=== PATIENT | female | born 1995 | race Caucasian/White ===

== ENCOUNTER 2017-02-07 01:41 | Inpatient (IN) | payer OTHER ==
[2017-02-07] MEDS ORDERED: ceFAZolin 2 GM PREMIX(*) 0 GM/0 ML BAG IVPB ONE (06:39)
[2017-02-07] MEDS ORDERED: Sodium Citrate/Citric Acid* 15 ML UDC ONE (07:04)
[2017-02-07] MEDS ORDERED: ceFOXitin 2 GM IVPREMIX* 2 GM/50 ML BAG ONE (07:09)
[2017-02-07] MEDS ORDERED: Morphine PF AMP (0.5MG/ML)* 5 MG/10 ML AMP ONE (07:42)
[2017-02-07] MEDS ORDERED: OXYTOCIN* 10 UNITS/ML 1 ML VIAL ONE (08:33)
[2017-02-07] MEDS ORDERED: Ondansetron INJ* 2 MG/ML VIAL IV PRN (08:44)
[2017-02-07] MEDS ORDERED: Naloxone* 0.4 MG/ML 1 ML VIAL IV PRN (08:44)
[2017-02-07] MEDS ORDERED: Nalbuphine* 20 MG/ML 1 ML VIAL IV PRN (08:44)
[2017-02-07] MEDS ORDERED: Zolpidem TAB* 5 MG PO PRN (09:03)
[2017-02-07] MEDS ORDERED: Witch Hazel PAD* JAR TOPICAL PRN (09:03)
[2017-02-07] MEDS ORDERED: Dibucaine 1% 28.35 GM TUBE PR PRN (09:03)
[2017-02-07] MEDS ORDERED: oxyCODONE/Acetamin 5/325 MG* TAB PO PRN (09:03)
[2017-02-07] MEDS ORDERED: Acetaminophen TAB* 325 MG PO PRN (09:03)
[2017-02-07] MEDS ORDERED: Glycerin ADULT SUPP PR PRN (09:03)
--- NOTE | 2017-02-07 09:55 | OP ---
DATE OF OPERATION: 02/07/17 - ROOM #[id number] DATE OF : [birth year] SURGEON: Dr. Coronel TRACK SURFACING MACHINE OPERATOR: Laura Judd CM PRE-OP DIAGNOSIS: Previous section. POST-OP DIAGNOSIS: Previous section. OPERATIVE PROCEDURE: Low transverse section. ESTIMATED BLOOD LOSS: 800 cc. COMPLICATIONS: None. FINDINGS: This is a 21-year-old 2, para 1, with a previous section who desired an elective repeat. At the time of , she had a viable male. Apgars were 9 and 9, weight was 9 pounds 6 ounces. Normal- appearing uterus, fallopian tubes, and ovaries. DESCRIPTION OF PROCEDURE: The patient identified and procedure identified as a low transverse section. The patient was taken to the operating room and prepped and draped in the usual fashion in the left lateral recumbent position under spinal anesthesia. A Pfannenstiel incision was made through the old incision and carried down through fat, fascia, and peritoneum. An Baljinder retractor was placed. A transverse incision was made in the lower uterine segment and extended laterally using blunt dissection. The was delivered through the incision with ease. The cord was doubly clamped and cut, and the was handed to the awaiting senior quality manager. Cord blood was obtained. Placenta was delivered spontaneously. The uterus was wiped out with a wet lap sponge. The uterine incision was then closed using 0 Polysorb in running fashion. A second layer was used to imbricate the first layer. Good hemostasis was achieved with 3-0 Polysorb [id number] sutures. Hemostasis was verified. The gutters were wiped out with a wet lap sponge. The Baljinder retractor was removed. The peritoneum was closed using 3-0 Polysorb in a running fashion. Good hemostasis achieved in the subrectus layers. The fascia was closed using 0 Polysorb in a running fashion. The subcuticular tissue space was reapproximated using 3-0 Polysorb, and the skin was closed with 4-0 Monocryl in a subcuticular fashion. All sponge and instrument counts were correct. The patient returned to the recovery room in a stable condition. [id number]/[facility] #: [id number] [facility]ENT[facility]ishi
[2017-02-07] MEDS: oxyCODONE/Acetamin 5/325 MG* TAB PO PRN ×3 (10:00→23:50)
[2017-02-07] MEDS ORDERED: Scopolamine 1.5 mg* PATCH ONE (10:54)
[2017-02-07] MEDS ORDERED: Scopolamine 1.5 mg* PATCH TRANSDERM SCH (11:00)
[2017-02-07] MEDS: Simethicone CHEW TAB* 80 MG PO SCH ×3 (11:46→21:25)
[2017-02-07] MEDS ORDERED: Morphine INJ* 2 MG/ML 1 ML SYRINGE ONE (12:24)
[2017-02-07] MEDS ORDERED: DiMENhydriNATE IV* 50 MG/ML VIAL ONE (12:24)
[2017-02-07] MEDS ORDERED: Morphine INJ* 2 MG/ML 1 ML SYRINGE IV ONE (12:25)
[2017-02-07] MEDS ORDERED: DiMENhydriNATE IV* 50 MG/ML VIAL IV PUSH ONE (12:25)
[2017-02-07] MEDS: Docusate CAP* 100 MG PO SCH ×2 (12:43→21:25)
[2017-02-07] MEDS: Ibuprofen TAB* 600 MG PO PRN ×2 (16:46→23:50)
[2017-02-08] MEDS: oxyCODONE/Acetamin 5/325 MG* TAB PO PRN ×4 (05:59→23:47)
[2017-02-08] MEDS: Ibuprofen TAB* 600 MG PO PRN ×4 (05:59→23:47)
[2017-02-08 06:49] LABS: Add Diff/Slide Review? Slide Review Added; Comments Flag Yes; Hematocrit 25 % (35-47); Mean Corpuscular HGB Conc 32 g/dl (31-36); Mean Corpuscular Hemoglobin 24 pg (27-31); Mean Corpuscular Volume 74 fL (80-97); Mean Platelet Volume 10 um3 (7.4-10.4); Red Blood Count 3.37 10^6/ul (4.0-5.4); Red Cell Distribution Width 18 % (10.5-15); White Blood Count 13.7 10^3/ul (3.5-10.8)
[2017-02-08] MEDS: Docusate CAP* 100 MG PO SCH ×3 (07:46→19:15)
[2017-02-08] MEDS: Simethicone CHEW TAB* 80 MG PO SCH ×4 (07:46→23:48)
[2017-02-08] MEDS: Ferrous Gluconate TAB* 324 MG TAB PO SCH ×2 (19:15)
[2017-02-09] MEDS: Ibuprofen TAB* 600 MG PO PRN ×2 (05:29→12:06)
[2017-02-09] MEDS: oxyCODONE/Acetamin 5/325 MG* TAB PO PRN ×2 (05:29→12:06)
[2017-02-09 08:14] VITALS: BP 105/44
[2017-02-09] MEDS: Docusate CAP* 100 MG PO SCH (08:25)
[2017-02-09] MEDS: Simethicone CHEW TAB* 80 MG PO SCH ×2 (08:25→12:06)
[2017-02-09] MEDS: Ferrous Gluconate TAB* 324 MG TAB PO SCH (08:25)
[2017-02-11] MEDS ORDERED: Scopolomine PATCH Remove* 1 NOTE MISC PATCH OFF SCH (11:00)
== END 2017-02-09 12:38 | disposition home or self-care (01) | DRG 540 ==
LOC: UNDOADMIN 01:41 → MCHOB 01:41
PROVIDERS: ADMIT Obstetrics & Gynecology; ATTEND Obstetrics & Gynecology
PROC: 10D00Z1 Extraction of Products of Conception, Low, Open Approach (ICD-10-PCS; principal; 2017-02-07 07:45)
DX: O34.211 Maternal care for low transverse scar from previous cesarean delivery (principal); D64.9 Anemia, unspecified; O90.81 Anemia of the puerperium; Z37.0 Single live birth; Z3A.39 39 weeks gestation of pregnancy
CPT/HCPCS: 36415; 85025; A9270-GY; J0690; J0694; J1240; J2270; J2405; J2590

== ENCOUNTER 2017-08-08 10:51 | Emergency (ER) | payer OTHER ==
--- NOTE | 2017-08-08 10:58 | UC ---
Knee Pain HPI - HPI Summary HPI Summary: Twisted right knee 2 weeks ago. Has continued pain with ambulation---unable to fully extended---Gets a clicking, catching, pain - History of Current Complaint Chief Complaint: UCLowerExtremity Stated Complaint: KNEE INJURY Time Seen by Provider: 08/08/17 11:05 Hx Obtained From: Patient Hx Last Menstrual Period: currently ?: No Onset/Duration: Sudden Onset, Lasting Weeks - 2 Severity Initially: Moderate Severity Currently: Moderate Location Of Injury: knee (r) lateral distal Pain Intensity: 6 Pain Scale Used: 0-10 Numeric Character: Aching, Throbbing, Stiffness Associated Signs And Symptoms: Positive: Negative Able to Bear Weight: Yes - with pain - Allergies/Home Medications Allergies/Adverse Reactions: Allergies Allergy/AdvReac Type Severity Reaction Status Date / Time No Known Allergies Allergy Verified 08/08/17 11:00 Home Medications: Home Medications Amitriptyline TAB* [Elavil TAB*] 10 mg PO BEDTIME 08/08/17 [History Confirmed ] PMH/Surg Hx/FS Hx/Imm Hx Previously Healthy: Yes Neurological History: Migraine - Surgical History Surgical History: Yes Surgery Procedure, Year, and Place: T & A age 8. . D & E - Family History Known Family History: Positive: None - Social History Occupation: Employed Full-time Lives: With Family Alcohol Use: None Substance Use Type: None Smoking Status (MU): Never Smoked Tobacco Have You Smoked in the Last Year: No - Immunization History Most Recent Influenza Vaccination: few years Most Recent Tetanus Shot: "in school" Most Recent Pneumonia Vaccination: never Review of Systems Constitutional: Negative Skin: Negative Eyes: Negative ENT: Negative Respiratory: Negative Cardiovascular: Negative Gastrointestinal: Negative Genitourinary: Negative Motor: Decreased ROM - unable to fully extend Neurovascular: Negative Musculoskeletal: Negative, Arthralgia - right knee Neurological: Negative Psychological: Negative Is Patient Immunocompromised?: No All Other Systems Reviewed And Are Negative: Yes Physical Exam Triage Information Reviewed: Yes Appearance: Well-Appearing, No Pain Distress, Well-Nourished Vital Signs Reviewed: Yes Eye Exam: Normal Eyes: Positive: Conjunctiva Clear ENT Exam: Normal ENT: Positive: Normal ENT inspection, Hearing grossly normal. Negative: Nasal congestion, Nasal drainage, Trismus, Muffled/hoarse voice Dental Exam: Normal Neck exam: Normal Neck: Positive: Supple, Nontender Respiratory Exam: Normal Respiratory: Positive: Chest non-tender, No respiratory distress, No accessory muscle use Cardiovascular Exam: Normal Cardiovascular: Positive: RRR, Pulses Normal, Brisk Capillary Refill Musculoskeletal Exam: Other Musculoskeletal: Positive: No Edema, Strength Limited @, ROM Limited @ - extension right knee Neurological Exam: Normal Neurological: Positive: Alert, Muscle Tone Normal Psychological Exam: Normal Psychological: Positive: Normal Response To Family Skin Exam: Normal Diagnostics - Radiology No standard instances Xray Interpretation: No Acute Changes Radiology Interpretation Completed By: ED Physician Re-Evaluation - Re-Evaluation First Eval Change: Improved - improved comfort n/m/c intact Knee Pain Course/Dx - Course Course Of Treatment: rice, immoblizer, crutches, follow with orthopedic - Differential Dx/Diagnosis Differential Diagnosis/HQI/PQRI: Contusion, Fracture (Closed), Internal Derangement Of Knee, Sprain, Strain Provider Diagnoses: Right knee injury Discharge - Discharge Plan Condition: Stable Disposition: HOME Patient Education Materials: Swollen Knee Joint (ED), RICE Therapy (ED), Knee Immobilizer (ED) Forms: *Work Release Referrals: Alonzo Roldan MD [Medical Doctor] - 4 Days
[2017-08-08 11:08] VITALS: BP 113/70
--- NOTE | 2017-08-08 11:58 | RAD ---
INDICATION: 3 weeks of left COMPARISON: None TECHNIQUE: 4 view radiograph of the right knee. FINDINGS: The visualized bones are well-corticated and properly aligned. The joint spaces are properly maintained. There is no radiographic evidence of joint effusion. There is no acute fracture, dislocation or other focal bony abnormality. IMPRESSION: Normal knee radiograph as described above. If the patient's symptoms persist, follow-up imaging is recommended.
== END 2017-08-08 12:10 | disposition home or self-care (01) ==
LOC: UCEAST 10:51
DX: S89.81XA Other specified injuries of right lower leg, initial encounter (principal); X50.1XXA Overexertion from prolonged static or awkward postures, initial encounter; Y92.9 Unspecified place or not applicable
CPT/HCPCS: 99213; G0463

== ENCOUNTER 2018-03-09 03:15 | Emergency (ER) | payer OTHER ==
[2018-03-09 03:19] VITALS: BP 118/70
[2018-03-09] MEDS ORDERED: Proparacaine 0.5% OPHTH.SOL* 15 ML BTL RIGHT EYE ONE (03:41)
[2018-03-09] MEDS ORDERED: Fluorescein Sodium TOPICAL* 1 MG TEST OPHTHALMIC ONE (03:41)
[2018-03-09] MEDS ORDERED: Tetracaine 0.5% OPTH.SOL 15ML* BTL ONE (03:42)
[2018-03-09] MEDS ORDERED: Fluorescein Sod TOPICAL 0.6* 0.6 MG TEST OPHTHALMIC ONE (03:43)
[2018-03-09] MEDS ORDERED: Tetracaine 0.5% OPTH.SOL 4 ML* 1 DROP BTL ONE ×2 (03:44→03:51)
[2018-03-09] MEDS ORDERED: Cyclopentolate 1% OPTH.SOL* 2 ML BTL LEFT EYE ONE (03:49)
--- NOTE | 2018-03-09 04:55 | ED ---
Minoo Armas Emily, scribed for Tramaine Arango MD on 03/09/18 at 0350 . 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 The patient rates the pain 7/10 in severity. Symptoms aggravated by nothing. Symptoms alleviated by nothing. Pt reports inability to open R eyelid. Pt denies L eye pain. Pt denies any contact or glasses use. - History of Current Complaint Chief Complaint: EDEyeProblem Time Seen by Provider: 03/09/18 03:27 Hx Obtained From: Patient Onset/Duration: Sudden Onset, Lasting Hours, Still Present - Allergies/Home Medications Allergies/Adverse Reactions: Allergies Allergy/AdvReac Type Severity Reaction Status Date / Time No Known Allergies Allergy Verified 03/09/18 03:19 PMH/Surg Hx/FS Hx/Imm Hx Previously Healthy: No Endocrine/Hematology History: Denies: Hx Diabetes Cardiovascular History: Denies: Hx Hypertension, Hx Pacemaker/ICD History: Reports: Other Problems/Disorders - D & E Denies: Hx Renal Disease Sensory History: Denies: Hx Hearing Aid Psychiatric History: Denies: Hx Panic Disorder - Surgical History Surgery Procedure, Year, and Place: T & A age 8. X2. D & E Infectious Disease History: No Infectious Disease History: Denies: Hx Clostridium Difficile, Hx Hepatitis, Hx Human Immunodeficiency Virus (HIV), Hx Shingles, Hx Tuberculosis, Hx Known/Suspected VRE, Hx Known/ Suspected VRSA, History Other Infectious Disease, Traveled Outside the [place] in Last 30 Days - Family History Known Family History: Positive: Cardiac Disease Negative: Diabetes - Social History Occupation: Unemployed Lives: Alone Alcohol Use: None Hx Substance Use: No Substance Use Type: Reports: None Hx Tobacco Use: No Smoking Status (MU): Never Smoked Tobacco Have You Smoked in the Last Year: No Review of Systems Negative: Fever Positive: Other - Positive R eye pain and inability to open eyelid. Negative L eye pain All Other Systems Reviewed And Are Negative: Yes Physical Exam - Summary Physical Exam Summary: Appearance: Well appearing, no pain distress Skin: warm, dry, reflects adequate perfusion Head/face: normal Eyes: EOMI, ALISIA, difficulty opening the affected right eye. No pain with consensual light reflex in the R eye. No opacity to the cornea. Minimal pain relief with topical anesthetic. No fluorescence uptake. Eye is held open and has grossly normal vision. Dilated with Cyclogyl which relieved her symptoms significantly. ENT: normal Neck: supple, non-tender Respiratory: CTA, breath sounds present Cardiovascular: RRR, pulses symmetrical Abdomen: non-tender, soft Bowel Sounds: present Musculoskeletal: normal, strength/ROM intact Neuro: normal, sensory motor intact, A&Ox3 Triage Information Reviewed: Yes Vital Signs On Initial Exam: Initial Vitals Temp Pulse Resp BP Pulse Ox 98.1 F 92 16 118/70 99 03/09/18 03:17 03/09/18 03:17 03/09/18 03:17 03/09/18 03:17 03/09/18 03:17 Vital Signs Reviewed: Yes Diagnostics - Vital Signs Vital Signs Temp Pulse Resp BP Pulse Ox 03/09/18 03:17 98.1 F 92 16 118/70 99 - Laboratory Lab Statement: Any lab studies that have been ordered have been reviewed, and results considered in the medical decision making process. Re-Evaluation - Re-Evaluation First Eval Change: Improved - Significant improvement with Cyclogyl EENT Course/Dx - Course Course Of Treatment: Patient with atraumatic eye pain, globes are soft. Vision is grossly normal. No corneal fluorescein uptake. No injection of the conjunctiva. Pain is significantly improved with Cyclogyl. Pupil is midrange and reactive prior to dilation. Discussed with compressor house operator will evaluate the office. There is no history of rheumatologic or autoimmune conditions or family history thereof. - Differential Diagnoses Differential Diagnoses: Cluster Headache, Contusion, Foreign Body, Glaucoma, Keratitis, Uveitis - Diagnoses Provider Diagnoses: Iritis - Provider Notifications Discussed Care Of Patient With: Baldomero Kim Time Discussed With Above Provider: 04:40 Instructed by Provider To: Other - Consult with Dr. Kim (hr internship) at 0440. He agrees to see pt at 5pm at his office. Discharge - Sign-Out/Discharge Documenting (check all that apply): Discharge/Admit/Transfer - Discharge - Discharge Plan Condition: Improved Disposition: HOME Patient Education Materials: Iritis (ED) Referrals: Baldomero Kim MD [Medical Doctor] - Additional Instructions: Go at 5 PM today to be seen by the compressor house operator. Do not drive. Dark glasses can be worn. Ice to the eyes as needed. Ibuprofen as needed. Return if worse, visual changes, new symptoms or other concerns. - Billing Disposition and Condition Condition: IMPROVED Disposition: HOME The documentation as recorded by the Minoo fall Emily accurately reflects the service I personally performed and the decisions made by me, Tramaine Arango MD.
== END 2018-03-09 05:02 | disposition home or self-care (01) ==
LOC: ED 03:15
DX: H20.9 Unspecified iridocyclitis (principal)
CPT/HCPCS: 99281; A9270-GY

== ENCOUNTER 2019-08-31 06:03 | Inpatient (IN) | payer OTHER ==
[~2019-08-31 06:03] MED LIST: Buffered Lidocaine 1% SYRIN* 1 ML/SYRINGE INTRADERM ONE; Sodium Citrate/Citric Acid* 15 ML UDC PO ONE
--- OUTSIDE RECORDS SUMMARY | 2019-08-31 06:09 | XMS REPORT | Continuity of Care Document ---
:1995 External Reference #:[id number] Author Name Saumya Shannon MD Address [address] [place] [address] Problems Description No Active Problems Social History Type Date Description Comments Sex Unknown Tobacco Use Start: Unknown Never Smoked Cigarettes ETOH Use Denies alcohol use Recreational Drug Use Does Not Use Drugs Tobacco Use Start: Unknown Patient has never smoked Smoking Status Reviewed: 08/25/19 Patient has never smoked Exercise Type/Frequency Does not exercise Seat Belt/Car Seat Always uses seat belt Allergies, Adverse Reactions, Alerts Active Allergies Reaction Severity Comments Date NKDA 02/22/2014 Seasonal Allergies 07/19/2016 Medications Active Medications SIG Qnty Indications Ordering Date Provider Butalbital/Acetami 1-2 tablets every 4 30tabs Binta Hart 08/12/2019 nophen/Caffeine hours; do not excess Kel, CNM 6 tablets daily 50-325-40mg Tablets Insulin Syringe Use as directed with 100units Xavier Mcdermott, 07/27/2019 insulin; ok to CNM 31G X /16" 1 ML substitute gauge and Misc needles size covered by insurance. Humulin N 4 units 10ml Vicky 07/17/2019 subcutaneously in at [facility] CamiloM 100Unit/ML night Suspension Dha 1 by mouth every day, Unknown ok to use 200-400mg 200mg Capsules dha History Medications Fioricet 1-2 capsules 14caps Binta Hart 08/09/2019 - 50-300-40mg every 4 hours as SERJIO Begum 08/12/2019 Capsules needed. max 6 capsules per day. Insulin use as directed 100units Carleen Rodriguez, 07/17/2019 - Syringe/0.3ML/30G X 07/27/2019 516" 30G X 03/26" 0.3 ML Misc Immunizations Description No Information Available Vital Signs Date Vital Result Comment 08/25/2019 10:21am BP Systolic 120 mmHg BP Diastolic 64 mmHg Height 62.25 inches 5'2.25" Weight 211.00 lb BMI (Body Mass Index) 38.3 kg/m2 Last Menstrual Period [id number] 4 Parity 2 07/17/2019 10:02am BP Systolic 120 mmHg BP Diastolic 74 mmHg Height 62.25 inches 5'2.25" Weight 205.00 lb BMI (Body Mass Index) 37.2 kg/m2 4 Parity 2 Results Test Date Facility Test Result H/L Range Note Laboratory test [facility] Rupture of Negative 1 [address] [place] [address] Membranes [phone] Urine Drug SCR [facility] Urine None Detected None ED & Pain [address] [place] [address] Amphetamine Detect Clinic [phone] Screen Urine Barbiturates Screen None Detected None Detect Urine Benzodiazepine Screen None Detected None Detect Urine Cannabinoids Screen None Detected None Detect Urine Cocaine Screen None Detected None Detect Urine Opiates Screen None Detected None Detect Urine Phencyclidine Screen None Detected None Detect 2 Laboratory test 08/14/2019 [facility] Group B SEE RESULT 3 , [address] [place] [address] Strep BELOW [phone] Culture Screen CBC Auto Diff 08/09/2019 [facility] White Blood 12.8 High 3.5- [address] [place] [address] Count 10^3/uL 0.8 [phone] Red Blood Count 4.49 10^6/uL Normal 3.70-4.87 Hemoglobin 11.0 g/dL Low 12.0-16.0 Hematocrit 34 % Low 35-47 Mean Corpuscular Volume 75 fL Low 80-97 Mean Corpuscular Hemoglobin 25 pg Low 27-31 Mean Corpuscular HGB Conc 33 g/dL Normal 31-36 Red Cell Distribution Width 15 % Normal 10-15 Platelet Count 204 10^3/uL Normal 150-450 Mean Platelet Volume 8.3 fL Normal 7.4-10.4 Abs Neutrophils 10.2 10^3/uL High 1.5-7.7 Abs Lymphocytes 1.5 10^3/uL Normal 1.0-4.8 Abs Monocytes 1.1 10^3/uL High 0-0.8 Abs Eosinophils 0.0 10^3/uL Normal 0-0.6 Abs Basophils 0.0 10^3/uL Normal 0-0.2 Abs Nucleated RBC 0.0 10^3/uL Granulocyte % 79.5 % Lymphocyte % 11.6 % Monocyte % 8.5 % Eosinophil % 0.1 % Basophil % 0.3 % Nucleated Red Blood Cells % 0.0 Comp Metabolic 08/09/2019 [facility] Sodium 135 mmol/L Normal 135-145 [place] [address] [phone] Potassium 4.0 mmol/L Normal 3.5-5.0 Chloride 103 mmol/L Normal 101-111 Co2 Carbon Dioxide 26 mmol/L Normal 22-32 Anion Gap 6 mmol/L Normal 2-11 Glucose 150 mg/dL High 70-100 Blood Urea Nitrogen 11 mg/dL Normal 6-24 Creatinine 0.61 mg/dL Normal 0.51-0.95 BUN/Creatinine Ratio 18.0 Normal 8-20 Calcium 8.6 mg/dL Normal 8.6-10.3 Total Protein 6.1 g/dL Low 6.4-8.9 Albumin 3.2 g/dL Normal 3.2-5.2 Globulin 2.9 g/dL Normal 2-4 Albumin/Globulin Ratio 1.1 Normal 1-3 Total Bilirubin 0.30 mg/dL Normal 0.2-1.0 Alkaline Phosphatase 93 U/L Normal 34-104 Alt 7 U/L Normal 7-52 Ast 12 U/L Low 13-39 Egfr Non- 121.5 >60 Egfr 147.1 >60 5 Laboratory test 08/09/2019 [facility] Point of Care 87 mg/dL Normal 70-100 [address] [place] [address] Glucose [phone] Laboratory test 08/09/2019 [facility] Point of Care 63 mg/dL Low 70-100 [address] [place] [address] Glucose [phone] Urinalysis 08/09/2019 [facility] Urine Color Straw [address] [place] [address] [phone] Urine Appearance Cloudy Urine Specific [place] 1.003 Low 1.010-1.030 Urine pH 7.0 Normal 5-9 Urine Urobilinogen Negative Negative Urine Ketones Negative Negative Urine Protein Negative Negative Urine Leukocytes Negative Negative Urine Blood Negative Negative Urine Nitrite Negative Negative Urine Bilirubin Negative Negative Urine Glucose Negative Negative Urine Drug 08/09/2019 [facility] Urine None Detected None Detect [place] [address] [place] [address] Amphetamine Pain Clinic [phone] Screen Urine Barbiturates Screen None Detected None Detect Urine Benzodiazepine Screen None Detected None Detect Urine Cannabinoids Screen None Detected None Detect Urine Cocaine Screen None Detected None Detect Urine Opiates Screen None Detected None Detect Urine Phencyclidine Screen None Detected None Detect 9 GC/Chlamydia Dna 08/04/2019 [facility] Chlamydia [place] [address] trachomatis Pam [phone] Neisseria gonorrhoeae (GC) Pam Negative Negative 1 A NEGATIVE results indicates there is no evidence of membrane rupture. 2 The urine specimen was tested at the listed cutoffs: Drug class test level (ng/mL) Amphetamines 500 Barbiturates 200 Benzodiazepine metabolites 200 Cocaine metabolites 150 Cannabinoids 50 Opiates 300 Pcp 25 Specimen was received without chain of custody. Results should be used for medical purposes only. 3 [id number] 4 SEE RESULT BELOW Name: MEDARDO BROWNLEE : [address]: Segundo Dorsey DO Acct: [id number] Unit: [id number] AGE: 24 Location: [facility] Re08/14/19 SEX: F Status: REG REF SPEC: [id number] ANEESH: 08/14/19-1508 [facility] DR: Segundo Dorsey DO REQ: [id number] RECD: 08/17/19 STATUS: COMP _ SOURCE: CER/VAG/RE SPDESC: ORDERED: Grp B Strp Scrn COMMENTS: [id number] QUERIES: Is patient penicillin allergic and/or sensitivities needed? N Provider Requisition # [id number] Procedure Result Reported Site Group B Strep Culture Screen Final 08/19/19- 1140 ML Group B Strep Screen Negative * ML - Main Lab . END OF REPORT DEPARTMENT OF PATHOLOGY, [address] [place] [address] Lucian Bullock M.D. Director [facility] # [id number] 5 Because ethnic data is not always readily available, this report includes an eGFR for both -Americans and non- Americans. The National Kidney Disease Education Program (NKDEP) does not endorse the use of the MDRD equation for patients that are not between the ages of 18 and 70, are , have extremes of body size, muscle mass, or nutritional status, or are non- or non-. According to the National Kidney Foundation, irrespective of diagnosis, the stage of the disease is based on the level of kidney function: Stage Description GFR(mL/min/1.73 m(2)) 1 Kidney damage with normal or decreased GFR 90 2 Kidney damage with mild decrease in GFR 60-89 3 Moderate decrease in GFR 30-59 4 Severe decrease in GFR 15-29 5 Kidney failure <15 (or dialysis) 6 Sales Product Manager: [id number] Sales Product Manager: [id number] Urine Source: Clean Catch 9 The urine specimen was tested at the listed cutoffs: Drug class test level (ng/mL) Amphetamines 500 Barbiturates 200 Benzodiazepine metabolites 200 Cocaine metabolites 150 Cannabinoids 50 Opiates 300 Pcp 25 Specimen was received without chain of custody. Results should be used for medical purposes only. Procedures Date Code Description Status 08/25/2019 45388 Echography Uterus Limited Completed 08/18/2019 57220 Echography Uterus Limited Completed 08/14/2019 05030 Biophysical Profile Without Non Stress Test Completed 08/14/2019 01538 Echography Uterus Follow-Up Or Repeat Completed 08/14/2019 33790 Non-Stress Test Completed 08/09/2019 75086 Non-Stress Test Completed Medical Devices Description No Information Available Encounters Type Date Location Provider Dx Diagnosis Office Visit 08/09/2019 10:22a Delivery Binta Hart Kel, Z37.0 Single live CNM R51 Headache Assessments Date Code Description Provider 08/25/2019 O24.414 Gestational diabetes mellitus in Ultrasounds , insulin controlled 08/18/2019 O99.810 Abnormal glucose complicating Segundo Dorsey JR, DO 08/18/2019 O24.414 Gestational diabetes mellitus in Segundo Dorsey JR DO , insulin controlled 08/18/2019 O99.810 Abnormal glucose complicating Ultrasounds 08/14/2019 O99.810 Abnormal glucose complicating Segundo Dorsey JR, DO 08/14/2019 O34.211 Maternal care for low transverse scar Segundo Willian JR, DO from previous delivery 08/14/2019 O99.810 Abnormal glucose complicating Ultrasounds 08/09/2019 Z37.0 Single live Binta Begum, SERJIO 08/09/2019 R51 Headache Binta Begum, SERJIO 08/04/2019 O24.414 Gestational diabetes mellitus in Vicky Camilo CNM , insulin controlled 07/27/2019 O24.414 Gestational diabetes mellitus in Carleen Rodriguez MD , insulin controlled 07/17/2019 Z36.9 Encounter for screening, Xavier Mcdermott CNM unspecified Plan of Treatment Future Appointment(s):10/12/2019 10:00 am - Saumya Shannon MD at [facility] 1:15 pm - Ashley Awan CNM at [facility]08/31/2019 7:45 am - Saumya Shannon MD at [facility] R Functional Status Description No Information Available Mental Status Description No Information Available Referrals Description No Information Available
--- OUTSIDE RECORDS SUMMARY | 2019-08-31 06:09 | XMS REPORT | Continuity of Care Document ---
:1995 External Reference #:[id number] Author Name Segundo Willian JR, DO Address [address] [place] [address], [place] [address] Problems Description No Active Problems Social History Type Date Description Comments Sex Unknown Tobacco Use Start: Unknown Never Smoked Cigarettes ETOH Use Denies alcohol use Recreational Drug Use Does Not Use Drugs Tobacco Use Start: Unknown Patient has never smoked Exercise Type/Frequency Does not exercise Seat Belt/Car Seat Always uses seat belt Allergies, Adverse Reactions, Alerts Active Allergies Reaction Severity Comments Date NKDA 02/22/2014 Seasonal Allergies 07/19/2016 Medications Active Medications SIG Qnty Indications Ordering Date Provider Butalbital/Acetami 1-2 tablets every 4 30tabs Binta Hart 08/12/2019 nophen/Caffeine hours; do not excess SERJIO Begum 6 tablets daily 50-325-40mg Tablets Insulin Syringe Use as directed with 100units Xavier Mcdermott, 07/27/2019 insulin; ok to CNM 31G X 16" 1 ML substitute gauge and Misc needles size covered by insurance. Humulin N 4 units 10ml [facility] 07[facility]17[facility]Unit/ML night Suspension Dha 1 by mouth every day, Unknown ok to use 200-400mg 200mg Capsules dha History Medications Fioricet 1-2 capsules 14caps Binta Hart 08/09/2019 - 50-300-40mg every 4 hours as SERJIO Begum 08/12/2019 Capsules needed. max 6 capsules per day. Insulin use as directed 100units Carleen Rodriguez, 07/17/2019 - Syringe/0.3ML/30G X MD 07/27/201916" 30G X 5/16" 0.3 ML Misc Immunizations Description No Information Available Vital Signs Date Vital Result Comment 07/17/2019 10:02am BP Systolic 120 mmHg BP Diastolic 74 mmHg Height 62.25 inches 5'2.25" Weight 205.00 lb BMI (Body Mass Index) 37.2 kg/m2 4 Parity 2 06/24/2017 2:31pm BP Systolic 112 mmHg BP Diastolic 64 mmHg Height 62.25 inches 5'2.25" Weight 179.00 lb BMI (Body Mass Index) 32.5 kg/m2 Last Menstrual Period [id number] Results Test Date Facility Test Result H/L Range Note Laboratory test 08/14/2019 [facility] Genital For <pending> [place] [address] GRP B Strep [phone] Only CBC Auto Diff 08/09/2019 [facility] White Blood 12.8 10^3/uL High 3.5-10.8 [place] [address] Count [phone] Red Blood Count 4.49 10^6/uL Normal 3.70-4.87 [...] Blood Cells % 0.0 Comp Metabolic 08/09/2019 [facility] Sodium 135 mmol/L Normal 135-145 Panel [place], [place] [id number] [phone] Potassium 4.0 mmol/L Normal 3.5-5.0 Chloride 103 [...] Egfr Non- 121.5 >60 Egfr 147.1 >60 1 Laboratory test 08/09/2019 [facility] Point of Care 87 mg/dL Normal 70-100 2 [place] [address] Glucose [phone] Laboratory test 08/09/2019 [facility] Point of Care 63 mg/dL Low 70-100 3 [place] [address] Glucose [phone] Urinalysis 08/09/2019 [facility] Urine Color Straw 4 Profile [place], [place] [id number] [phone] Urine Appearance Cloudy Urine Specific [place] 1.003 Low 1.010-1.030 Urine pH 7.0 Normal 5-9 Urine Urobilinogen Negative Negative Urine Ketones Negative Negative Urine Protein Negative Negative Urine Leukocytes Negative Negative Urine Blood Negative Negative Urine Nitrite Negative Negative Urine Bilirubin Negative Negative Urine Glucose Negative Negative Urine Drug 08/09/2019 [facility] Urine None Detected None Detect SCR [place] [address] [place] [address] Amphetamine Pain Clinic [phone] Screen Urine Barbiturates Screen None Detected None Detect Urine Benzodiazepine Screen None Detected None Detect Urine Cannabinoids Screen None Detected None Detect Urine Cocaine Screen None Detected None Detect Urine Opiates Screen None Detected None Detect Urine Phencyclidine Screen None Detected None Detect 5 GC/Chlamydia Dna 08/04/2019 [facility] Chlamydia [place] [address] trachomatis Pam [phone] Neisseria gonorrhoeae (GC) Pam Negative Negative 1 Because ethnic data is not always readily [...] 15-29 5 Kidney failure <15 (or dialysis) 2 Coal Chute Worker: [id number] 3 Coal Chute Worker: [id number] 4 Urine Source: Clean Catch 5 The urine specimen was tested at the listed cutoffs: Drug class test level (ng/mL) Amphetamines 500 Barbiturates 200 Benzodiazepine metabolites 200 Cocaine metabolites 150 Cannabinoids 50 Opiates 300 Pcp 25 Specimen was received without chain of custody. Results should be used for medical purposes only. Procedures Date Code Description Status 08/18/2019 43025 Echography Uterus Limited Completed 08/14/2019 51174 Biophysical Profile Without Non Stress Test Completed 08/14/2019 92915 Echography Uterus Follow-Up Or Repeat Completed 08/09/2019 74836 Non-Stress Test Completed Medical Devices Description No Information Available Encounters Type Date Location Provider Dx Diagnosis Office Visit 08/09/2019 10:22a Delivery Binta Begum, Z37.0 Single live CNM R51 Headache Assessments Date Code Description Provider 08/18/2019 O99.810 Abnormal glucose complicating Ultrasounds 08/14/2019 O34.211 Maternal care for low transverse scar Segundo Dorsey JR, DO from previous delivery 08/14/2019 O99.810 Abnormal glucose complicating Ultrasounds 08/09/2019 Z37.0 Single live Binta Begum CNM 08/09/2019 R51 Headache Binta Begum, SERJIO 08/04/2019 O24.414 Gestational diabetes mellitus in Vicky Camilo CNM , insulin controlled 07/27/2019 O24.414 Gestational diabetes mellitus in Carleen Rodriguez MD , insulin controlled 07/17/2019 Z36.9 Encounter for screening, Xavier Mcdermott CNM unspecified Plan of Treatment Future Appointment(s):08/25/2019 10:20 am - Nurses at [facility]08/25/2019 10: 00 am - Ultrasounds at [facility]08/25/2019 10:45 am - Saumya Shannon MD at [facility] Functional Status Description No Information Available Mental Status Description No Information Available Referrals Description No Information Available
--- OUTSIDE RECORDS SUMMARY | 2019-08-31 06:09 | XMS REPORT | Continuity of Care Document ---
:1995 External Reference #:[id number] Author Name Saumya Shannon MD Address [address] [place] [address] Problems Description No Active Problems Social History [...] Carleen Rodriguez, 07/17/2019 - Syringe/0.3ML/30G X 07/27/2019 5/16" 30G X 16" 0.3 ML Misc Medications Administered in Office Medication SIG Qnty Indications Ordering Provider Date PT SCRN Tbco Id as Non User Saumya Shannon MD 08/25/2019 Injection Immunizations Description No Information Available Vital Signs Date Vital Result Comment 08/25/2019 10:21am BP Systolic 120 mmHg BP Diastolic 64 mmHg Height 62.25 inches 5'2.25" Weight 211.00 lb BMI (Body Mass Index) 38.3 kg/m2 Last Menstrual Period [id number] 4 Parity 2 07/17/2019 10:02am BP Systolic 120 mmHg BP Diastolic 74 mmHg Height 62.25 inches 5'2.25" Weight 205.00 lb BMI (Body Mass Index) 37.2 kg/m2 4 Parity 2 Results Test Date Facility Test Result H/L Range Note Laboratory test [facility] Rupture of Negative 1 finding [address] [place] [address] Membranes [phone] Urine Drug SCR [facility] Urine None Detected None ED & Pain [address] [place] [address] Amphetamine Detect Clinic [phone] Screen Urine Barbiturates Screen None Detected None Detect Urine Benzodiazepine Screen None Detected None Detect Urine Cannabinoids Screen None Detected None Detect Urine Cocaine Screen None Detected None Detect Urine Opiates Screen None Detected None Detect Urine Phencyclidine Screen None Detected None Detect 2 Laboratory test 08/14/2019 [facility] B SEE RESULT 3 , 4 [place] [address] Strep BELOW [phone] Culture Screen CBC Auto Diff 08/09/2019 [facility] White Blood 12.8 High 3.5- 1 [place] [address] Count 10^3/uL 0.8 [phone] Red Blood Count 4.49 10^6/uL Normal 3.70-4.87 [...] Blood Cells % 0.0 Comp Metabolic 08/09/2019 [facility] Sodium 135 mmol/L Normal 135-145 [place] [address] [phone] Potassium 4.0 mmol/L Normal 3.5-5.0 Chloride 103 [...] Egfr 147.1 >60 5 Laboratory test 08/09/2019 [facility] Point of Care 87 mg/dL Normal 70-100 6 [place] [address] Glucose [phone] Laboratory test 08/09/2019 [facility] Point of Care 63 mg/dL Low 70-100 7 [place] [address] Glucose [phone] Urinalysis 08/09/2019 [facility] Urine Color Straw [address] [place] [address] [phone] Urine Appearance Cloudy Urine Specific [place] 1.003 Low 1.010-1.030 Urine pH 7.0 Normal 5-9 Urine Urobilinogen Negative Negative Urine Ketones Negative Negative Urine Protein Negative Negative Urine Leukocytes Negative Negative Urine Blood Negative Negative Urine Nitrite Negative Negative Urine Bilirubin Negative Negative Urine Glucose Negative Negative Urine Drug 08/09/2019 [facility] Urine None Detected None Detect SCR [place] [address] Amphetamine Pain Clinic [phone] Screen Urine Barbiturates Screen None Detected None Detect Urine Benzodiazepine Screen None Detected None Detect Urine Cannabinoids Screen None Detected None Detect Urine Cocaine Screen None Detected None Detect Urine Opiates Screen None Detected None Detect Urine Phencyclidine Screen None Detected None Detect 9 GC/Chlamydia Dna 08/04/2019 [facility] Chlamydia [place] [address] trachomatis Pam [phone] Neisseria gonorrhoeae (GC) Pam Negative Negative 1 [...] be used for medical purposes only. 3 [id number] 4 SEE RESULT BELOW Name: MEDARDO BROWNLEE : [address]: Segundo Dorsey DO Acct: [id number] Unit: [id number] AGE: 24 Location: [facility] Re08/14/19 SEX: F Status: REG REF SPEC: [id number] ANEESH: 08/14/19-[address] [facility] [address]: Segundo Dorsey DO REQ: [id number] RECD: 08/17/19 STATUS: COMP _ SOURCE: CER/VAG/RE SPDESC: ORDERED: Grp B Strp Scrn COMMENTS: [id number] QUERIES: Is patient penicillin allergic and/or sensitivities needed? N Provider Requisition # [id number] Procedure Result Reported Site Group B Strep Culture Screen Final 08/19/19- 1140 ML Group B Strep Screen Negative * ML - Main Lab . END OF REPORT DEPARTMENT OF PATHOLOGY, [address] [place] [address] Lucian Bullock M.D. Director [facility] # [id number] 5 Because ethnic data is not always [...] 5 Kidney failure <15 (or dialysis) 6 Sprinkler Irrigation Equipment Mechanic: [id number] Sprinkler Irrigation Equipment Mechanic: [id number] Urine Source: Clean Catch 9 The urine specimen was tested at the listed cutoffs: Drug class test level (ng/mL) Amphetamines 500 Barbiturates 200 Benzodiazepine metabolites 200 Cocaine metabolites 150 Cannabinoids 50 Opiates 300 Pcp 25 Specimen was received without chain of custody. Results should be used for medical purposes only. Procedures Date Code Description Status 08/25/2019 12692 Echography Uterus Limited Completed 08/18/2019 60748 Echography Uterus Limited Completed 08/14/2019 14198 Biophysical Profile Without Non Stress Test Completed 08/14/2019 46449 Echography Uterus Follow-Up Or Repeat Completed 08/14/2019 64196 Non-Stress Test Completed 08/09/2019 71225 Non-Stress Test Completed Medical Devices Description No Information Available Encounters Type Date Location Provider Dx Diagnosis Office Visit 08/25/2019 [facility] Saumya Shannon, O34.211 Matern care for low 10:45a transverse scar from prev del Office Visit 08/09/2019 Delivery Binta Hart Z37.0 Single live 10:22a SERJIO Begum R51 Headache Assessments Date Code Description Provider 08/25/2019 O34.211 Maternal care for low transverse scar Saumya Shannon MD from previous delivery 08/25/2019 O24.414 Gestational diabetes mellitus in Ultrasounds , insulin controlled 08/18/2019 O99.810 Abnormal glucose complicating Segundo Dorsey JR, DO 08/18/2019 O24.414 Gestational diabetes mellitus in Segundo Dorsey JR, DO , insulin controlled 08/18/2019 O99.810 Abnormal glucose complicating Ultrasounds 08/14/2019 O99.810 Abnormal glucose complicating Segundo Dorsey JR, DO 08/14/2019 O34.211 Maternal care for low transverse scar Segundo Dorsey JR from previous delivery 08/14/2019 O99.810 Abnormal glucose complicating Ultrasounds 08/09/2019 Z37.0 Single live Binta Begum CNM 08/09/2019 R51 Headache Binta Begum CNM 08/04/2019 O24.414 Gestational diabetes mellitus in Vicky Camilo CNM , insulin controlled 07/27/2019 O24.414 Gestational diabetes mellitus in Carleen Rodriguez MD , insulin controlled 07/17/2019 Z36.9 Encounter for screening, Xavier Mcdermott CNM unspecified Plan of Treatment Future Appointment(s):10/12/2019 10:00 am - Saumya Shannon MD at [facility] 1:15 pm - Ashley Awan CNM at [facility]08/31/2019 7:45 am - Saumya Shannon MD at [facility] O - Saumya Shannon MDO34.211 Maternal care for low transverse scar from previous deliveryComments:Plans RCS. Reviewed how/when to call prior to that. Reviewed risks of procedure including but not limited to hemorrhage, infection, pain blood clots and injury to nearby organs. Alternative options discussed previously.Consents signed and questions answered. Reviewed recovery and importance of no heavy lifting or straining.RTO 1wk and then 1mo for post-op visit. Should call this afternoon if still concerned about movement and would then recommend prolonged monitoring on L&D. Functional Status Description No Information Available Mental Status Description No Information Available Referrals Description No Information Available
[2019-08-31] MEDS ORDERED: Ammonia Inhalant* 1 EA AMP ONE (06:25)
[2019-08-31] MEDS ORDERED: ceFAZolin* 2 GM* ONE DOSE (Duplex) IVPB (07:00)
[2019-08-31] MEDS ORDERED: Morphine PF AMP (0.5MG/ML)* 5 MG/10 ML AMP ONE (07:30)
[2019-08-31 08:04] LABS: Urine Benzodiazepine Screen None Detected (None Detect); Urine Opiates Screen None Detected (None Detect)
[2019-08-31] MEDS ORDERED: Naloxone* 0.4 MG/ML 1 ML VIAL IV PRN ×2 (08:39→08:40)
[2019-08-31] MEDS ORDERED: Ondansetron INJ* 2 MG/ML VIAL IV PRN (08:40)
[2019-08-31] MEDS ORDERED: Scopolamine 1.5 mg* PATCH TRANSDERM PRN (08:40)
[2019-08-31] MEDS ORDERED: OXYTOCIN* 10 UNITS/ML 1 ML VIAL ONE (08:49)
[2019-08-31] MEDS ORDERED: EPHEDrine (Pressors)* 50 MG/ML VIAL ONE (08:50)
[2019-08-31] MEDS ORDERED: Ondansetron INJ* 2 MG/ML VIAL ONE (09:04)
[2019-08-31] MEDS ORDERED: fentaNYL* 50 MCG/ML 2 ML VIAL (100 MCG VIAL) ONE (10:45)
[2019-08-31] MEDS ORDERED: DiMENhydriNATE IV* 50 MG/ML VIAL ONE (10:49)
[2019-08-31] MEDS ORDERED: fentaNYL* 50 MCG/ML 2 ML VIAL (100 MCG VIAL) IV PRN (11:22)
[2019-08-31] MEDS ORDERED: DiMENhydriNATE IV* 50 MG/ML VIAL IV PUSH ONE ×2 (11:25→14:30)
[2019-08-31] MEDS: Lactated Ringers 1000 ML Bag* 1,000 ML IV SCH ×2 (11:53→15:00)
[2019-08-31] MEDS ORDERED: Acetaminophen TAB* 325 MG PO PRN (12:13)
[2019-08-31] MEDS ORDERED: Dibucaine 1% 28.35 GM TUBE PR PRN (12:13)
[2019-08-31] MEDS ORDERED: Glycerin ADULT SUPP PR PRN (12:13)
[2019-08-31] MEDS ORDERED: Witch Hazel PAD* JAR TOPICAL PRN (12:13)
[2019-08-31] MEDS ORDERED: Zolpidem TAB* 5 MG PO PRN (12:13)
[2019-08-31] MEDS ORDERED: Lactated Ringers 1000 ML Bag* 1,000 ML IV SCH (13:00)
[2019-08-31] MEDS: Simethicone TAB* 80 MG TAB.CHEW PO SCH ×4 (14:37→23:28)
--- NOTE | 2019-08-31 14:38 | OP ---
DATE OF OPERATION: 08/31/19 - ROOM #104 DATE OF : [birth year] SURGEON: Saumya Shannon MD STOKER MECHANIC: Blaise Pena CNM ANESTHESIA: Spinal. PRE-OP DIAGNOSES: 1. Intrauterine gestation at 39 weeks. 2. Prior section x2. 3. Desires permanent sterilization. POST-OP DIAGNOSES: 1. Intrauterine gestation at 39 weeks. 2. Prior section x2. 3. Desires permanent sterilization. OPERATIVE PROCEDURE: Repeat lower transverse section and bilateral tubal ligation. ESTIMATED BLOOD LOSS: 600 mL. SPECIMENS: Placenta and tubes. FLUIDS: Crystalloid. DRAINS: Martinez catheter with clear urine. FINDINGS: Male infant, Apgars of 9 and 9, weight 9 pounds. Normal-appearing uterus, ovaries, and tubes. Small omental adhesion to the anterior abdominal wall. Placenta appeared intact. DESCRIPTION OF PROCEDURE: After informed consent was signed, the patient was taken to the operating room where she was given a spinal anesthesia that was found to be adequate. A Martinez catheter was introduced into her bladder and SCDs were placed on her legs. She was prepped and draped in the dorsal supine position with a leftward lift. A Pfannenstiel skin incision was made with a scalpel and carried down to the underlying layer of fascia with the scalpel. The fascia was incised in the midline and the fascial incision extended laterally with the Sandoval scissors. The inferior edge of the fascial incision was grasped with Anurag clamps, tented up, and dissected down with a combination of sharp and blunt dissection. Then, the superior edge of the fascial incision was grasped with Anurag clamps, tented up, and dissected down with a combination of sharp and blunt dissection. The rectus muscles were in the midline and the peritoneum was entered with blunt dissection. The incision was then extended inferiorly with the Sandoval scissors and then superiorly. It was then extended laterally with blunt pressure. The bladder blade was inserted and a transverse incision was made in the lower uterine segment with the scalpel. The incision was extended superiorly and inferiorly with blunt pressure. The infant's head was delivered with fundal pressure followed by the shoulders and the rest of the body. The cord was milked towards the baby and after more than 30 seconds clamped x2 and cut. The baby was handed to the rn gastroenterology. Cord blood was collected. The placenta was then delivered with fundal massage and gentle cord traction. The uterus was exteriorized and cleared of clots and debris. The uterine incision was closed with 0 Vicryl in a running locked fashion with a second layer of suture imbricating the first. Then, attention was turned to the tubes. First, the left tube was clamped with Alana clamps x2 and double suture ligated. There was a vessel that continued to bleed, so it was clamped again and double suture ligated once more with good hemostasis. Next, attention was turned to the right tube. The fimbriated end first was released from a small adhesion with the ovary with Bovie cautery. Then, the fimbriated end was clamped x2 and double suture ligated and the end of the tube was removed. The uterus was placed back into the abdominal cavity and the incision was inspected and good hemostasis was noted. The tubal sites were inspected also and there was good hemostasis and the sutures were in place. Next, the peritoneum was closed with 3-0 Vicryl in a running unlocked fashion. The fascia was closed with 0 Vicryl in a running unlocked fashion. Four interrupted sutures of 3-0 Vicryl were placed in the subcuticular layer to reapproximate. Then, the skin was closed with 4-0 Monocryl in a running subcuticular fashion. The incision was cleaned. Mastisol and Steri- Strips were placed. The patient was taken to the recovery room in stable condition. [id number]/[facility] #: [id number] SAM
[2019-08-31] MEDS: Docusate CAP* 100 MG PO SCH ×2 (18:23→21:37)
[2019-08-31] MEDS: Ibuprofen TAB* 400 MG PO SCH ×2 (18:44→20:21)
[2019-08-31] MEDS: oxyCODONE/Acetamin 5/325 MG* TAB PO PRN ×2 (20:22→23:29)
[2019-09-01] MEDS: oxyCODONE/Acetamin 5/325 MG* TAB PO PRN ×5 (04:10→21:12)
[2019-09-01 05:46] LABS: ABS Basophils 0.1 10^3/ul (0-0.2); ABS Lymphocytes 2.1 10^3/ul (1.0-4.8); ABS Monocytes 1.5 10^3/ul (0-0.8); ABS Neutrophils 8.3 10^3/ul (1.5-7.7); Eosinophil % 0.3 %; Hematocrit 25 % (35-47); Hemoglobin 8.1 g/dL (12.0-16.0); Lymphocyte % 17.6 %; Mean Corpuscular HGB Conc 32 g/dL (31-36); Mean Corpuscular Hemoglobin 24 pg (27-31); Mean Corpuscular Volume 74 fL (80-97); Mean Platelet Volume 8.7 fL (7.4-10.4); Platelet Count 167 10^3/uL (150-450); Red Blood Count 3.37 10^6 /uL (3.70-4.87); Red Cell Distribution Width 16 % (10-15)
[2019-09-01] MEDS: Ferrous Gluconate TAB* 324 MG TAB PO SCH ×2 (08:28→21:12)
[2019-09-01] MEDS: Simethicone TAB* 80 MG TAB.CHEW PO SCH ×4 (08:28→21:11)
[2019-09-01] MEDS: Ibuprofen TAB* 600 MG PO PRN ×2 (11:03→18:25)
[2019-09-01] MEDS: Docusate CAP* 100 MG PO SCH ×3 (11:03→21:11)
[2019-09-02] MEDS: oxyCODONE/Acetamin 5/325 MG* TAB PO PRN ×3 (01:28→10:12)
[2019-09-02] MEDS: Ibuprofen TAB* 600 MG PO PRN ×2 (01:29→10:15)
[2019-09-02] MEDS: Docusate CAP* 100 MG PO SCH (08:51)
[2019-09-02] MEDS: Simethicone TAB* 80 MG TAB.CHEW PO SCH (08:52)
[2019-09-02] MEDS: Ferrous Gluconate TAB* 324 MG TAB PO SCH (08:52)
[2019-09-02 11:52] VITALS: BP 96/52
== END 2019-09-02 11:55 | disposition home or self-care (01) | DRG 540 ==
LOC: MCHOB 06:03
PROVIDERS: ADMIT Obstetrics & Gynecology; ATTEND Obstetrics & Gynecology
PROC: 0UB70ZZ Excision of Bilateral Fallopian Tubes, Open Approach (ICD-10-PCS; 2019-08-31)
PROC: 10D00Z1 Extraction of Products of Conception, Low, Open Approach (ICD-10-PCS; principal; 2019-08-31 07:45)
DX: O34.211 Maternal care for low transverse scar from previous cesarean delivery (principal); O24.424 Gestational diabetes mellitus in childbirth, insulin controlled; K66.0 Peritoneal adhesions (postprocedural) (postinfection); O99.619 Diseases of the digestive system complicating pregnancy, unspecified trimester; Z3A.39 39 weeks gestation of pregnancy; Z37.0 Single live birth; Z30.2 Encounter for sterilization
CPT/HCPCS: 36415; 80307; 85025; 88302; A9270-GY; J0690; J1240; J2405; J2590; J3010